=== PATIENT | male | born 1950 | race Caucasian/White ===

== ENCOUNTER → 2016-07-29 | Outpatient (CLI) | payer OTHER ==
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
== END ==
LOC: IMA 16:33
DX: Z02.9 Encounter for administrative examinations, unspecified (principal)